=== PATIENT | female | born 1980 | race Hispanic/Latino ===

== ENCOUNTER → 2023-01-13 | Outpatient (CLI) | payer OTHER | END | disposition home or self-care (01) | LOC: RAH 11:18 | PROVIDERS: ATTEND Obstetrics & Gynecology | DX: Z12.31 Encounter for screening mammogram for malignant neoplasm of breast (principal) | CPT/HCPCS: 77067 ==

== ENCOUNTER → 2023-03-07 | Outpatient (CLI) | payer OTHER ==
[2023-03-07 09:29] LABS: BASOPHILS # (AUTO) 0.04 K/uL (0.00-0.20); BASOPHILS % (AUTO) 0.5 % (0.0-5.0); EOSINOPHILS # (AUTO) 0.13 K/uL (0.00-0.70); EOSINOPHILS % (AUTO) 1.6 % (0.0-8.0); HEMATOCRIT 40.6 % (36-48); LYMPHOCYTES # (AUTO) 2.2 K/uL (1.0-4.8); LYMPHOCYTES % (AUTO) 27.6 % (21.0-51.0); MEAN CORPUSCULAR HEMOGLOBIN 31.1 pg (27.0-33.0); MEAN CORPUSCULAR HGB CONC 33.5 g/dL (32.0-36.0); MEAN CORPUSCULAR VOLUME 92.7 fL (79-99); MONOCYTES # (AUTO) 0.4 K/uL (0.1-1.0); MONOCYTES % (AUTO) 5.2 % (3.0-13.0); NEUTROPHILS # (AUTO) 5.1 K/uL (1.8-7.7); NEUTROPHILS % (AUTO) 63.9 % (40.0-77.0); PLATELET COUNT (AUTO) 383 K/uL (130-400); RED BLOOD CELL COUNT(AUTO) 4.38 MIL/uL (4.00-5.50); RED CELL DISTRIBUTION WIDTH 11.5 % (11.0-15.5)
[2023-03-07 09:41] LABS: HEMOGLOBIN A1C 5.7 % (4.0-6.0)
[2023-03-07 09:51] LABS: ALBUMIN 3.6 g/dL (3.5-5.0); BILIRUBIN,TOTAL 0.2 mg/dL (0.2-1.0); CREATININE 0.8 mg/dL (0.5-1.5); POTASSIUM 4.7 mmol/L (3.5-5.1); THYROID STIMULATING HORMONE 0.85 uIU/mL (0.36-3.74); TOTAL PROTEIN, SERUM 8.3 g/dL (6.0-8.3)
== END | disposition home or self-care (01) ==
LOC: LAB 08:42
PROVIDERS: ATTEND Internal Medicine
DX: Z13.29 Encounter for screening for other suspected endocrine disorder (principal); Z13.1 Encounter for screening for diabetes mellitus; Z13.220 Encounter for screening for lipoid disorders; Z00.00 Encounter for general adult medical examination without abnormal findings
CPT/HCPCS: 36415; 80053; 80061; 82043; 82570; 83036; 84443; 85025

== ENCOUNTER → 2023-10-13 | Outpatient (CLI) | payer OTHER | END | disposition home or self-care (01) | LOC: RAH 15:30 | PROVIDERS: ATTEND Internal Medicine | DX: M47.816 Spondylosis without myelopathy or radiculopathy, lumbar region (principal); M54.50 Low back pain, unspecified | CPT/HCPCS: 72100 ==

== ENCOUNTER → 2024-01-16 | Outpatient (CLI) | payer OTHER ==
[2024-01-16 09:36] LABS: BASOPHILS # (AUTO) 0.03 K/uL (0.00-0.20); BASOPHILS % (AUTO) 0.4 % (0.0-5.0); EOSINOPHILS # (AUTO) 0.23 K/uL (0.00-0.70); EOSINOPHILS % (AUTO) 3.2 % (0.0-8.0); IMMATURE GRANULOCYTE ABSOLUTE 0.04 K/uL (0-1); LYMPHOCYTES # (AUTO) 2.2 K/uL (1.0-4.8); LYMPHOCYTES % (AUTO) 31.1 % (21.0-51.0); MEAN CORPUSCULAR HEMOGLOBIN 31.4 pg (27.0-33.0); MEAN CORPUSCULAR HGB CONC 33.9 g/dL (32.0-36.0); MEAN CORPUSCULAR VOLUME 92.8 fL (79-99); MONOCYTES # (AUTO) 0.5 K/uL (0.1-1.0); MONOCYTES % (AUTO) 6.4 % (3.0-13.0); NEUTROPHILS # (AUTO) 4.2 K/uL (1.8-7.7); NEUTROPHILS % (AUTO) 58.3 % (40.0-77.0); PLATELET COUNT (AUTO) 283 K/uL (130-400); RED BLOOD CELL COUNT(AUTO) 4.42 MIL/uL (4.00-5.50); RED CELL DISTRIBUTION WIDTH 11.6 % (11.0-15.5); WHITE BLOOD COUNT (AUTO) 7.1 K/uL (4.8-10.8)
[2024-01-16 09:43] LABS: HEMOGLOBIN A1C 5.8 % (4.0-6.0)
[2024-01-16 09:58] LABS: ALBUMIN 3.7 g/dL (3.5-5.0); BILIRUBIN,TOTAL 0.4 mg/dL (0.2-1.0); CREATININE 0.7 mg/dL (0.5-1.0); POTASSIUM 4.5 mmol/L (3.5-5.1); THYROID STIMULATING HORMONE 0.7 uIU/mL (0.36-3.74); TOTAL PROTEIN, SERUM 7.9 g/dL (6.0-8.3)
== END | disposition home or self-care (01) ==
LOC: LAB 08:26
PROVIDERS: ATTEND Internal Medicine
DX: Z13.29 Encounter for screening for other suspected endocrine disorder (principal); Z13.1 Encounter for screening for diabetes mellitus; Z00.00 Encounter for general adult medical examination without abnormal findings
CPT/HCPCS: 36415; 80053; 80061; 83036; 84443; 85025

== ENCOUNTER → 2024-01-17 | Outpatient (CLI) | payer OTHER ==
--- NOTE | 2024-01-17 09:29 | HMCIMG ---
MAMMO SCREENING BILATERAL HISTORY: Screening mammogram. COMPARISON: 01/13/2023 TECHNIQUE: Bilateral screening mammogram with CAD was performed with craniocaudal and mediolateral oblique projections. FINDINGS: The breasts are heterogeneous dense, which may obscure small masses. There is no evidence of a dominant mass, or suspicious microcalcification. There is no evidence of nipple retraction or skin thickening. IMPRESSION: 1. Stable mammogram. Patient was entered into a reminder system with a target due date for their next mammogram. BI-RADS: CATEGORY 2: BENIGN FINDINGS Recommend monthly self breast exam as well as annual clinical examination. A negative x-ray should not delay biopsy if a dominant or clinically suspicious mass is present, since 8-10% of cancers are not identified by mammography. Dense breasts particularly, may obscure an underlying neoplasm. Some of these may be detected clinically and therefore, clinical examination is an essential part of breast evaluation.
== END | disposition home or self-care (01) ==
LOC: RAH 08:19
PROVIDERS: ATTEND Internal Medicine
DX: Z12.31 Encounter for screening mammogram for malignant neoplasm of breast (principal); R92.333 Mammographic heterogeneous density, bilateral breasts
CPT/HCPCS: 77067

== ENCOUNTER 2024-03-05 05:55 | Day surgery (SDC) | payer OTHER ==
[2024-03-05] VITALS (12 sets, daily range): BP systolic 104–118; BP diastolic 63–71; PULSE 62–69; RESP 14–19; TEMP 97.3–97.6
[~2024-03-05] VITALS: Ht 157.5 cm; Wt 83.9 kg
[2024-03-05] MEDS ORDERED: 0.9%NACL 1000ML 1,000 ML IV ONE (06:09)
[2024-03-05] MEDS ORDERED: proPOFol 10 MG/ML 20ML VIAL IV ONE (07:40)
== END 2024-03-05 09:00 | disposition home or self-care (01) ==
LOC: ENDO 05:55 → DAH 05:55 → ENDO 09:00
PROVIDERS: ATTEND Internal Medicine Gastroenterology
DX: Z12.11 Encounter for screening for malignant neoplasm of colon (principal); K63.5 Polyp of colon; K64.9 Unspecified hemorrhoids; M19.90 Unspecified osteoarthritis, unspecified site; I10 Essential (primary) hypertension; Z90.49 Acquired absence of other specified parts of digestive tract; Z80.0 Family history of malignant neoplasm of digestive organs
CPT/HCPCS: 81025; 45380; J7030; J2704; A4620; A4215; A4223; A4222; A4606; J3490

== ENCOUNTER → 2024-11-09 | Emergency (ER) | payer OTHER ==
[~2024-11-09] VITALS: Ht 157.5 cm; Wt 83.5 kg
--- NOTE | 2024-11-09 01:51 | ERN ---
ED Note History of Present Illness Stated Complaint: Patient comes because she has some pelvic pain pelvic pressure. Was told by her specialists that she was ovulating Chief Complaint: Pelvic Pain Time Seen by MD: 01:49 Allergies: Coded Allergies: No Known Drug Allergies (Unverified Allergy, Unknown, 12/30/14) Home Meds No Active Prescriptions or Reported Meds Review of System Dictation Constitutional: Negative for fever,chills, and weight loss Eyes: Negative for injury, pain,redness, and discharge ENT: Negative for injury,pain or swelling Cardiovascular: Negative for chest pain, palpitations, and edema Respiratory: Negative for shortness of breath, cough, and wheezing, Abdomen/GI: Negative for abdominal pain, nausea, vomiting, diarrhea, and constipation Back: Negative for injury and pain : Negative for injury, bleeding and discharge MS/Extremity: Negative for injury and deformity Skin: Negative for rash, and discoloration Neuro: Negative for headache, weakness, numbness, tingling, and seizure Psych: Negative for suicide ideation, homicidal ideation, and hallucinations Initial Vital Sign VS Vital Signs Date Time Temp Pulse Resp B/P (MAP) Pulse Ox O2 Delivery O2 Flow Rate FiO2 11/09/24 01:45 97.9 80 18 146/85 100 Room Air 11/09/24 01:57 0 21 Physical Exam Dictation General: awake, alert, NAD Head/Face: Normocephalic, atraumatic Eyes: PERRL, EOMI, vision at baseline ENT: oral cavity clear, TMs clear, no signs of infection Neck: Trachea midline, supple, no nuchal rigidity Cardiovascular: RRR, normal S1/S2, No MRGs, no JVD Respiratory: CTAB, no respiratory distress, No rales or wheezes Abdomen: Soft, non-tender, non-distended, normal bowel sounds, no guarding or rebound. Skin: Warm, dry, normal turgor, no rash MS/Extremity: Pulses equal, no cyanosis, neurovascular intact, FROM Neuro: COAx4, GCS 15, strength 5/5, CN 2-12 intact, normal cerebellar exam, normal gait, Psych: Normal behavior, mood, and affect normal Results (Laboratory/Radiology) Laboratory/Radiology Laboratory Tests Test 11/09/24 01:58 11/09/24 03:35 White Blood Count 10.1 K/uL (4.8-10.8) Red Blood Count 4.10 MIL/uL (4.00-5.50) Hemoglobin 12.8 g/dL (12.0-16.0) Hematocrit 36.6 % (36-48) Mean Corpuscular Volume 89.3 fL (79-99) Mean Corpuscular Hemoglobin 31.2 pg (27.0-33.0) Mean Corpuscular Hemoglobin Concent 35.0 g/dL (32.0-36.0) Red Cell Distribution Width 11.9 % (11.0-15.5) Platelet Count 296 K/uL (130-400) Mean Platelet Volume 8.6 fL (7.5-10.5) Immature Granulocyte % (Auto) 0.5 % (0-1) Neutrophils (%) (Auto) 62.1 % (40.0-77.0) Lymphocytes (%) (Auto) 26.4 % (21.0-51.0) Monocytes (%) (Auto) 8.2 % (3.0-13.0) Eosinophils (%) (Auto) 2.4 % (0.0-8.0) Basophils (%) (Auto) 0.4 % (0.0-5.0) Neutrophils # (Auto) 6.3 K/uL (1.8-7.7) Lymphocytes # (Auto) 2.7 K/uL (1.0-4.8) Monocytes # (Auto) 0.8 K/uL (0.1-1.0) Eosinophils # (Auto) 0.24 K/uL (0.00-0.70) Basophils # (Auto) 0.04 K/uL (0.00-0.20) Absolute Immature Granulocyte (auto 0.05 K/uL (0-1) Nucleated Red Blood Cells 0.0 % (0.0-0.19) Sodium Level 132 mmol/L (136-145) L Potassium Level 3.6 mmol/L (3.5-5.1) Chloride Level 99 mmol/L (101-111) L Carbon Dioxide Level 24 mmol/L (21-32) Blood Urea Nitrogen 17 mg/dL (7-18) Creatinine 0.6 mg/dL (0.5-1.0) Glomerular Filtration Rate Calc 113 mL/min (>90) Random Glucose 116 mg/dL (70-105) H Total Calcium 8.9 mg/dL (8.5-10.1) Total Bilirubin 0.4 mg/dL (0.2-1.0) Aspartate Amino Transf (AST/SGOT) 19 U/L (10-37) Alanine Aminotransferase (ALT/SGPT) 42 U/L (12-78) Alkaline Phosphatase 139 U/L (50-136) H Troponin I High Sensitivity 4 ng/L (4-50) Total Protein 7.3 g/dL (6.0-8.3) Albumin 3.6 g/dL (3.5-5.0) Lipase 38 U/L (16-77) Serum Test, Qualitative NEGATIVE (NEGATIVE) Urine Color COLORLESS (YELLOW) Urine Appearance CLEAR (CLEAR) Urine pH 5.0 (5.0-8.0) Urine Specific [place] 1.003 (1.001-1.031) Urine Protein NEGATIVE mg/dL (NEGATIVE) Urine Glucose (UA) NEGATIVE mg/dL (NEGATIVE) Urine Ketones 10 mg/dL (NEGATIVE) H Urine Occult Blood NEGATIVE (NEGATIVE) Urine Nitrate NEGATIVE (NEGATIVE) Urine Bilirubin NEGATIVE mg/dL (NEGATIVE) Urine Urobilinogen 0.2 mg/dL (0.2-1.0) Urine Leukocyte Esterase NEGATIVE Inna/uL Urine RBC None /HPF (0-1) Urine WBC 0-1 /HPF (0-1) Urine Squamous Epithelial Cells RARE /HPF (0-2) Urine Bacteria RARE /HPF (None Seen) ED Course ED Course Orders Procedure Category Date Status Time Cbc With Differential LAB 11/09/24 Complete 01:49 Comprehensive LAB 11/09/24 Complete Metabolic Panel 01:49 Troponin I High LAB 11/09/24 Complete Sensitivity 01:49 Us Pelvic Non-Ob Comp US 11/09/24 Taken 01:49 12 Lead Ekg Tracing- EKG 11/09/24 Logged Technical 01:49 Lactated Ringers PHA 11/09/24 Complete 1000ml (Lactated 02:00 Ct Abdomen/Pelvis W/O CT 11/09/24 Resulted Contrast 01:49 Lipase LAB 11/09/24 Complete 01:49 Testing, LAB 11/09/24 Complete Serum Hcg 01:49 Acetaminophen 500mg PHA 11/09/24 Complete Tab (Tylenol 500mg T 02:00 Urinalysis Profile LAB 11/09/24 Complete 02:16 Ketorolac PHA 11/09/24 Complete Tromethamine 30mg/Ml 04:00 Current Medications Medications (Trade) Dose Ordered Sig/Evelina Route PRN Reason Start Time Stop Time Status Last Admin Dose Admin Acetaminophen (TYLenol 500MG TAB) 500 mg ONCE ONCE PO 11/09/24 02:00 11/09/24 02:01 DC Ketorolac Tromethamine (toRADol) 30 mg ONCE ONCE IM 11/09/24 04:00 11/09/24 04:01 DC 11/09/24 03:42 Lactated Ringer's 1,000 ml @ 0 mls/hr ONCE ONCE IV 11/09/24 02:00 11/09/24 02:01 DC Vital Signs Date Time Temp Pulse Resp B/P (MAP) Pulse Ox O2 Delivery O2 Flow Rate FiO2 11/09/24 03:46 98.1 61 18 139/65 100 Room Air* 0 21 11/09/24 01:57 98.1 75 18 145/66 Room Air* 0 21 11/09/24 01:45 97.9 80 18 146/85 100 Room Air Medical Decision Making MDM MDM: Differential diagnosis: Rationale: Tests considered and ordered secondary to shared decision making include: Previous outside records reviewed: Old ER visits. Risk of complication and/or morbidity or mortality of patient management: None Medications-Per medication reconciliation Need for hospitalization: Patient does not meet criteria for hospitalization. Need for emergency major/minor surgery: No There are no social concerns with this patient. Prescription drug management Prescriptions will include symptomatic care Patient's prior external medical records from other ER visits were reviewed by me as indicated. Prior testing and results from previous visits were reviewed. Prior tests were taken into account with medical decision making and resource utilization, independent historian/historians were used to obtain complete medical history. I independently interpreted the test that were performed, results were reviewed by me and considered findings on radiology if ordered. Medical management and examination interpretation discussions were had by me with other qualified healthcare professionals as indicated for the patient's care. DX & DISP Disposition: Discharge Departure Impression: Primary Impression: Fibroid Additional Impressions: Cysts, Abdominal pain Condition: Stable Scripts No Active Prescriptions or Reported Meds Referrals: AUDIE ISSA MD (PCP) MICHAEL ARANA MD Nov 09, 2024 01:51
[2024-11-09] MEDS: LACTATED RINGERS 1000ML 1,000 ML IV ONE (02:04)
[2024-11-09 02:05] LABS: IMMATURE GRANULOCYTE ABSOLUTE 0.05 K/uL (0-1); NUCLEATED RED BLOOD CELLS 0.0 % (0.0-0.19); PLATELET COUNT (AUTO) 296 K/uL (130-400); RED BLOOD CELL COUNT(AUTO) 4.10 MIL/uL (4.00-5.50); RED CELL DISTRIBUTION WIDTH 11.9 % (11.0-15.5); WHITE BLOOD COUNT (AUTO) 10.1 K/uL (4.8-10.8)
[2024-11-09 02:16] LABS: CREATININE 0.6 mg/dL (0.5-1.0); GLOMERULAR FILTR. RATE CALC 113.0 mL/min (>90); GLUCOSE,RANDOM 116.0 mg/dL (70-105); SODIUM SERUM 132.0 mmol/L (136-145); UREA NITROGEN, BLOOD 17.0 mg/dL (7-18)
[2024-11-09 02:21] LABS: ASPARTATE AMINOTRANSFERASE 19.0 U/L (10-37); TOTAL PROTEIN, SERUM 7.3 g/dL (6.0-8.3)
[2024-11-09 03:41] LABS: APPEARANCE,URINE CLEAR (CLEAR); GLUCOSE, URINE (UA) NEGATIVE (NEGATIVE); LEUKOCYTE ESTERASE ,URINE NEGATIVE Leu/uL (NEGATIVE); NITRATE,URINE NEGATIVE (NEGATIVE); OCCULT BLOOD,URINE NEGATIVE (NEGATIVE)
[2024-11-09 03:42] LABS: ADD UA MICROSCOPIC YES
[2024-11-09 03:43] LABS: SQUAMOUS EPITHELIAL CELL,UR RARE /HPF (0-2)
[2024-11-09 03:46] VITALS: BP 139/65; PULSE 61; RESP 18; TEMP 98.1; O2SAT 100
--- NOTE | 2024-11-09 03:59 | HMCIMG ---
EXAM: CT Abdomen and Pelvis without IV contrast CLINICAL HISTORY: Pain. TECHNIQUE: Thin collimated axial CT images of the abdomen and pelvis were obtained with sagittal and coronal reformatted images also submitted. CT scan is done according to ALARA (As Low As Reasonably Achievable). CONTRAST: None. COMPARISON: CT abdomen and pelvis dated 12/30/2014. FINDINGS: The included lungs are clear. Mild hepatomegaly with diffuse hepatic steatosis. No focal abnormality within the gallbladder, pancreas, spleen, or adrenals. Nonobstructive renal calculi bilaterally, the largest measures up to 0.5 cm around the left renal lower pole. No ureteral calculus or hydronephrosis bilaterally. The urinary bladder is suboptimally distended and grossly unremarkable. 2 cm left ovarian cyst. Mildly enlarged uterus. Unremarkable right ovary. No obvious bowel wall thickening, dilatation, or obstruction. Status post appendectomy. Mild calcific atherosclerotic disease in the bilateral iliac arteries. No pathological lymphadenopathy in the abdomen or pelvis. No ascites or pneumoperitoneum. No acute bony abnormality is evident. Mild degenerative osseous changes. L2 vertebral body hemangioma. Tiny, uncomplicated fat-containing umbilical and supraumbilical hernias. IMPRESSIONS: No acute process in the abdomen or pelvis. Interval development of nonobstructive renal calculi bilaterally. The remaining findings are unchanged. Mild hepatomegaly with diffuse hepatic steatosis. Left ovarian cyst. Mildly enlarged uterus. Recommend ultrasound of the pelvis for further evaluation. /[place]
--- NOTE | 2024-11-09 04:18 | EKG ---
[facility] Test Date: 2024-11-09 Test Time: 01:55:29 Pat Name: CHAD NORMAN Department: [facility] Room: Gender: F Hog Raiser: [phone] Requested By: MICHAEL ARANA Order Number: [id number] Reading MD: Amado Delatorre Measurements Intervals [place] Rate: 71 P: 21 GA: 153 QRS: -12 QRSD: 88 T: 21 QT: 417 QTc: 453 Interpretive Statements Sinus rhythm No previous ECG available for comparison Electronically Signed On 11-11-2024 10:32:53 CDT by Amado Delatorre Please click the below link to view image of tracing.
--- NOTE | 2024-11-09 04:34 | HMCIMG ---
EXAM: US Pelvis, Complete. CLINICAL HISTORY: Abdominal Pain TECHNIQUE: Transvaginal and transabdominal pelvic ultrasound (complete) with image documentation. COMPARISON: None provided. FINDINGS: The uterus measures 12.4 x 7.2 x 8.8 cm. There are three uterine fibroids, measuring 1.5 x 1.1 x 1.6 cm, 1.4 x 1.0 x 1.3 cm, and 1.1 x 1.2 x 1.3 cm. The endometrial thickness is within normal limits and measures up to 7 mm. The right ovary is not visualized due to the overlying bowel gases. The left ovary measures 2.5 x 1.4 x 2.2 cm. Normal flow within the left ovary. There is a 0.9 x 1.0 x 0.8 cm follicle in the left ovary. IMPRESSION: Uterine fibroids. The right ovary is not visualized due to overlying bowel gas. Unremarkable left ovary. /[place]
== END ==
LOC: EDH 01:44
DX: D25.9 Leiomyoma of uterus, unspecified (principal); N83.202 Unspecified ovarian cyst, left side
CPT/HCPCS: 99285; 74176; 76856; 84484; 80053; 84703; 83690; 85025; 81001; 36415; 96372; 93005; J1885

== ENCOUNTER 2025-01-15 09:53 | Day surgery (SDC) | payer OTHER ==
[2025-01-14 11:37] LABS: IMMATURE GRANULOCYTE ABSOLUTE 0.04 K/uL (0-1); NUCLEATED RED BLOOD CELLS 0.0 % (0.0-0.19); PLATELET COUNT (AUTO) 335 K/uL (130-400); RED BLOOD CELL COUNT(AUTO) 4.36 MIL/uL (4.00-5.50); RED CELL DISTRIBUTION WIDTH 11.8 % (11.0-15.5); WHITE BLOOD COUNT (AUTO) 6.7 K/uL (4.8-10.8)
[2025-01-14 11:47] LABS: CREATININE 0.7 mg/dL (0.5-1.0); GLOMERULAR FILTR. RATE CALC 109.0 mL/min (>90); GLUCOSE,RANDOM 90.0 mg/dL (70-105); SODIUM SERUM 137.0 mmol/L (136-145); UREA NITROGEN, BLOOD 18.0 mg/dL (7-18)
[2025-01-14 11:52] VITALS: BP 115/71; PULSE 65; RESP 15; TEMP 97.9
[2025-01-14 11:52] LABS: ASPARTATE AMINOTRANSFERASE 16.0 U/L (10-37); TOTAL PROTEIN, SERUM 7.6 g/dL (6.0-8.3)
[2025-01-15] VITALS (10 sets, daily range): BP systolic 115–135; BP diastolic 62–72; PULSE 52–71; RESP 15–17; TEMP 97.1–97.8
[~2025-01-15] VITALS: Ht 157.5 cm; Wt 82.2 kg
[2025-01-15] MEDS ORDERED: IOHEXOL 180 MG/ML 10 ML VIAL ONE (10:38)
[2025-01-15] MEDS: LACTATED RINGERS 1000ML 1,000 ML IV ONE (11:15)
[2025-01-15] MEDS ORDERED: TRIAMCINOLONE ACETONIDE 40 MG/ML 1ML VIAL IM ONE (11:30)
[2025-01-15] MEDS ORDERED: TRIAMCINOLONE ACETONIDE 40 MG/ML 1ML VIAL SQ ONE (11:30)
[2025-01-15] MEDS ORDERED: LIDOCAINE HCL 1% 10 ML VIAL ONE (11:35)
[2025-01-15] MEDS ORDERED: PROMETHAZINE HCL 25 MG/ML 1ML AMPULE IM PRN (12:30)
[2025-01-15] MEDS: LIDOCAINE HCL 1% 10 ML VIAL MISC ONE (13:11)
[2025-01-15] MEDS: TRIAMCINOLONE ACETONIDE 40 MG/ML 1ML VIAL IM ONE (13:11)
[2025-01-15] MEDS ORDERED: LIDOCAINE PF 100MG/5ML (2%) SYRINGE 5ML ONE (13:15)
[2025-01-15] MEDS ORDERED: MIDAZOLAM HCL 1 MG/ML 2ML VIAL ONE (13:21)
--- NOTE | 2025-01-16 07:52 | PR ---
PREOPERATIVE DIAGNOSIS: Right sacroiliac joint pain, severe, intractable, not responding to conservative therapy. POSTOPERATIVE DIAGNOSIS: Right sacroiliac joint pain, severe, intractable, not responding to conservative therapy. SURGEON: Santos Jules MD PROCEDURE PERFORMED: Right sacroiliac joint injection, ANESTHESIA: TIVA. ESTIMATED BLOOD LOSS: 1 mL. DESCRIPTION OF PROCEDURE: Under sterile controlled condition, the patient was taken to the operating room. She was induced under local anesthetic with sedation, placed in a prone position with adequate padding of the upper and lower extremities. I went ahead and performed an injection of lidocaine 1% into the skin and subcutaneous tissue. I went ahead and injected Xylocaine 1% into the spinal needle all the way down to the SI joint. I visualized the SI joint with fluoroscopy on the AP and lateral view as well as the oblique and injected with a mix of Marcaine and Kenalog 0.25% into the joint when I had injected about 10 mL. Then, I removed my needle and . The patient was transferred to the recovery room with no complications. TID: [id number] RECEIPT: [id number]
--- NOTE | 2025-01-16 10:21 | HMCIMG ---
Fluoroscopy is utilized for the procedure. The total fluoroscopy time is 00:06.9 (mm:ss.d). The total dose area product is 1.3184 (Gycm2). The interpreting radiologist was not present during the procedure. /[place]
== END 2025-01-15 14:40 | disposition home or self-care (01) ==
LOC: DAH 09:53
PROVIDERS: ATTEND Neuromusculoskeletal Medicine & OMM
DX: M53.3 Sacrococcygeal disorders, not elsewhere classified (principal)
CPT/HCPCS: 80053; 84703; 85025; 36415; 27096; 72200; A4223 ×2; A6260; A4663; J7120; J2003; J2250; J2704; J3301 ×2; J0665 ×2; J3490 ×3; J0690; A4215; A4213; A4222; A4221; A4216; 76000; Q9965